=== PATIENT | female | born 1985 | race Caucasian/White ===

== ENCOUNTER → 2023-11-25 16:13 | Outpatient (CLI) | payer OTHER, SELFPAY ==
--- NOTE | 2023-11-25 16:17 | DI.US.S_ITS ---
PROCEDURE: US OB <= 14 WEEKS FETUS INDICATIONS: DATING AND VIABILITY OUTSIDE/PRIOR DATING DATA: Last menstrual period (LMP): 09/18/2023 LMP-based estimated date of delivery (SWETHA): 06/24/2024. First dating scan (date and location): Not applicable Estimated date of delivery (SWETHA) from first dating scan: Not applicable. TECHNIQUE: Real-time scanning was performed of the fetus and maternal pelvic organs, with image documentation. Endovaginal scanning was also performed to better visualize the fetus and maternal ovaries. COMPARISON: None. FINDINGS: Embryo: Single intrauterine gestational sac is seen with fetus and yolk sac noted. [place]-rump length measures 1.2 cm with estimated gestational age of 7 weeks, 3 days. Estimated gestational age based on last menstrual period is 9 weeks, 5 days. Heart rate: No cardiac activity is detected. Maternal organs: Corpus luteum is seen in right ovary. Left ovary is not visualized. No adnexal mass. 1.2 cm intramural fibroid is seen in posterior myometrium. IMPRESSION: 1. Finding is suggestive of intrauterine demise, please correlate with serial beta hCG levels and follow-up ultrasound. 2. Corpus luteum in right ovary. Small uterine fibroid. We strive to produce accurate, complete, and clear reports of imaging services. To assist us in improving patient care, this report was composed using standard report templates and voice recognition software. Therefore, it may contain abnormal punctuation, insertions and/or omissions. Occasional wrong-word or sound-alike substitutions may occur. Though we review the report and make efforts to correct it, we do recommend that the report be read carefully in proper context to recognize any text inaccuracies. Dictated by: James Plata M.D. on 11/27/2023 at 20:03 Approved by: James Plata M.D. on 11/27/2023 at 20:05
== END ==
LOC: US 16:16
DX: O36.80X0 Pregnancy with inconclusive fetal viability, not applicable or unspecified (principal); D25.1 Intramural leiomyoma of uterus
CPT/HCPCS: 76801; 76817